=== PATIENT | female | born 1965 | race Caucasian/White ===

== ENCOUNTER 2016-09-30 10:15 | Day surgery (SDC) | payer OTHER ==
[~2016-09-30] VITALS: Ht 149.9 cm; Wt 79.0 kg
[~2016-09-30 10:15] MED LIST: Lactated Ringer's 1,000 ML IV ONE; OMEP40CA36 PO
[2016-09-30] MEDS ORDERED: Propofol 10,000 mCg/mL 20 mL Inj ONE (10:16)
[2016-09-30 10:38] VITALS: BP 131/74; PULSE 70; RESP 16; O2SAT 98
[2016-09-30] MEDS ORDERED: Lactated Ringer's 1,000 ML IV SCH (10:44)
[2016-09-30] MEDS ORDERED: Ondansetron 2 mg/mL 2 mL Inj IVPUSH PRN (10:45)
[2016-09-30] MEDS ORDERED: MetoCLOpramide 5 mg/mL 2 mL Inj IVPUSH PRN (10:45)
[2016-09-30 11:27] VITALS: BP 108/75; PULSE 76; RESP 12; O2SAT 99
[2016-09-30 11:38] VITALS: BP 108/75; PULSE 62; RESP 14; O2SAT 99
--- NOTE | 2016-09-30 14:09 | ENDO ---
[address] [address] ENDOSCOPY PROCEDURE PATIENT: SHAZIA OLIVIA : 1965 MR#: [id number] ADMIT: 09/30/2016 JOB ID: [id number] TYPE OF OPERATION: Esophagogastroduodenoscopy, biopsy. Colonoscopy, biopsy. PREOPERATIVE DIAGNOSIS(ES): Gastroesophageal reflux disease and diarrhea. POSTOPERATIVE DIAGNOSIS(ES): 1. Small hiatal hernia. 2. 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 3. Mild sigmoid diverticulosis. ANESTHESIA: Monitored anesthesia care. COMPLICATIONS: None. BLOOD LOSS: Minimal. DESCRIPTION OF PROCEDURE: After risks and benefits explained to the patient, informed consent was obtained. After anesthesia administered, upper endoscope was inserted in mouth intubating the esophagus, stomach, second portion of duodenum. Mucosa carefully examined. After procedure was done, the scope withdrawn, procedure terminated. Colonoscope was then inserted from the rectum to the terminal ileum. Mucosa carefully examined. Prep of the patient was excellent. After procedure was done, the scope withdrawn, procedure terminated. FINDINGS: Upon inspection of the esophagus, esophagus was normal without masses, ulcers, or lesions. Z-line located at 35 cm from incisors. Upon entering the stomach, there appeared to be a gastric sleeve that was previously done. Retroflexion showed small hiatal hernia. Duodenal bulb, first and second portion were normal. Biopsies taken of duodenum, antrum, body of stomach and distal esophagus. Upon inspection of the anus, no masses, hemorrhoids, ulcers, or fissures that were seen throughout the entire examination. There was mild sigmoid diverticulosis. Biopsies taken of the terminal ileum and random colon. Retroflexion was normal. IMPRESSION: 1. Status post gastric sleeve. 2. Small hiatal hernia. 3. Small sigmoid diverticulosis. RECOMMENDATIONS: Await pathology results. High-fiber diet. The patient will need a repeat colonoscopy in 10 years for average risk for colorectal cancer screening.
--- NOTE | 2016-09-30 16:39 | PCM.HPANE ---
Patient Data Surgeon Admitting Provider: Attending Provider:Jose A Rankin MD Primary Care Physician:Mariela Kearney MD Other Provider:[facility] Reason for Visit Diarrhea Gerd Ht/WT & BMI Body Mass Index Allergies Coded Allergies: No Known Allergies (Unverified , 09/30/16) Medications Reported Medications Omeprazole 40 Mg Capsule.dr40 Mg PO BID Ref 0 09/29/16 Stop/Bang Risk Assessment Category Category 1A: Patient has history of documented sleep apnea, and HAS NOT received any narcotic, sedative or anesthesia administration during this stay. Category 1B: Patient has history of documented sleep apnea, and HAS received any narcotic , sedative or anesthesia administration during this stay Category 2: Patient has SUSPECTED Obstructive Sleep Apnea, and HAS received any narcotic , sedative or anesthesia administration during this stay. Category 3: Patient has SUSPECTED Obstructive Sleep Apnea and HAS NOT received narcotic, sedative or anesthesia administration during this stay. Category 4: Outpatient in Procedural Areas with known sleep apnea or who screen positive for High Risk via the STOP/BANG questionnaire. Exam Exam General Appearance: Alert, Oriented X3, Cooperative HEENT/AIRWAY: MP 2, Neck Movement (FROM), Mouth Opening (3 FBMO) Lungs: Normal Air Movement Heart: Regular Rate/Rhythm Plan Impression Patient chart reviewed, patient interviewed and anesthestic plan with risks, benefits, and alternatives discussed, and informed consent obtained. NPO Status: > 8 hrs ASA Physical Status: ASA2 Mod Systemic Disease Anesthetic Plan: MAC Bene/Risks/Altern/Consents: Yes HP Complete Prior to Induction: Yes David Wilkins MD Sep 30, 2016 07:19
--- NOTE | 2016-09-30 16:40 | PCM.ANEP1 ---
Post Anesthesia Phase 1 PACU Phase 1 Assessment Vital Signs Vital Signs Date Time Temp Pulse Resp B/P Pulse Ox O2 Delivery O2 Flow Rate FiO2 09/30/16 11:38 62 14 108/75 99 Room Air 09/30/16 11:27 76 12 108/75 99 Room Air 09/30/16 10:38 36.9 70 16 131/74 98 Room Air Anesthetic Administered: MAC Level of Alertness: Awake, talking SERNA's with Equal Strength: Yes Pain: No Nausea or Vomiting: No Cardiovascular Function and Hy: No Oxygen Delivery: Room Air Lungs: Normal Air Movement Dermatome Level: Full Sensation Complications: No Follow up Care: No David Wilkins MD Sep 30, 2016 16:40
--- NOTE | 2016-10-02 18:13 | PATH ---
SURGICAL PATHOLOGY Attending Physician:Jose A Rankin MD CASE STATUS: Signed Out PATIENT NAME: SHAZIA OLIVIA PID: [id number] : 1965 DATE COLLECTED:09/30/2016 19:36 SPECIMEN: 1: Duodenum, Biopsy 2: Stomach, Antrum, Biopsy 3: Gastric, Biopsy 4: Esophagus, Biopsy 5: Ileum, Biopsy 6: Colon, Biopsy CLINICAL HISTORY: 1). DUODENUM BIOPSY 2). ANTRUM BIOPSY 3). GASTRIC BODY BIOPSY 4). DISTAL ESOOPHAGUS BIOPSY 5). TERMINAL ILEUM BIOPSY 6). RANDOM COLON BIOPSY FINAL DIAGNOSIS: 1. Duodenum, Biopsy: Duodenal mucosa with no diagnostic abnormality. Negative for active inflammation, features of sprue, dysplasia or malignancy. 2. Stomach, Antrum, Biopsy: Antral-type mucosa with mild chronic gastritis. Negative for H. pylori organisms by immunohistochemistry studies. Negative for intestinal metaplasia, dysplasia, and malignancy. 3. Gastric Body Biopsy: Body-type mucosa with no diagnostic abnormality. Negative for Helicobacter organisms by H&E stain. Negative for intestinal metaplasia, dysplasia, and malignancy. 4. Distal Esophagus, Biopsy: Squamocolumnar junctional mucosa with no diagnostic abnormality. Negative for intestinal metaplasia, dysplasia, and malignancy. Scant columnar epithelium identified for evaluation. 5. Terminal Ileum, Biopsy: Small bowel mucosa with no diagnostic abnormality. Negative for active inflammation, dysplasia, and malignancy. 6. Colon, Random Biopsy: Colonic mucosa with no diagnostic abnormality. Negative for active, chronic, and microscopic colitis. Negative for dysplasia and malignancy. ICD10: K29.7 GROSS DESCRIPTION: The specimen is received in six formalin filled containers labeled with the patient's name. 1). The specimen is sublabeled "duodenum" and consists of 2 portions of tissue which aggregate to 0.5 x 0.3 x 0.2 CM. The specimen is entirely submitted in cassette 1A. 2). The specimen is sublabeled "antrum" and consists of 2 portions of tissue which aggregate to 0.3 x 0.3 x 0.2 CM. The specimen is entirely submitted in cassette 2A. 3). The specimen is sublabeled "gastric body" and consists of 3 portions of tissue which aggregate to 0.4 x 0.3 x 0.2 CM. The specimen is entirely submitted in cassette 3A. 4). The specimen is sublabeled "distal esophagus" and consists of a 0.4 x 0.2 x 0.2 CM portion of tissue which is entirely submitted in cassette 4A. 5). The specimen is sublabeled "terminal ileum" and consists of 2 portions of tissue which aggregate to 0.3 x 0.2 x 0.2 CM. The specimen is entirely submitted in cassette 5A. 6). The specimen is sublabeled "random colon" and consists of multiple portions of tissue which aggregate to 0.4 x 0.4 x 0.3 CM. The specimen is entirely submitted in cassettes 6A. 09/30/2016 [facility] MICRO DESCRIPTION: IMMUNOHISTOCHEMISTRY: Block 2A: H. pylori: Negative. Block 3A: H. pylori: Negative. * This test was developed and its performance characteristics determined by [facility]. It has not been cleared or approved by the U.S. Food and Drug Administration. The FDA has determined that such clearance or approval is not necessary. This test is used for clinical purposes. It should not be regarded as investigational or for research. ICD-9 CODES: CPT CODES: 1: 00445 2: 37323, 71729 3: 96362, 58331 4: 54074 5: 46179 6: 35935 Electronically Signed Out Carla Jewell MD [facility] [address], [place] [address] Technical component performed at [facility], [address], [place], [address]
== END 2016-09-30 23:59 | disposition home or self-care (01) ==
LOC: END 10:15
PROVIDERS: ATTEND Internal Medicine Gastroenterology
DX: R19.7 Diarrhea, unspecified (principal); K29.50 Unspecified chronic gastritis without bleeding; K44.9 Diaphragmatic hernia without obstruction or gangrene; R10.32 Left lower quadrant pain; K21.9 Gastro-esophageal reflux disease without esophagitis; G47.33 Obstructive sleep apnea (adult) (pediatric); K57.30 Diverticulosis of large intestine without perforation or abscess without bleeding; Z98.84 Bariatric surgery status; Z90.710 Acquired absence of both cervix and uterus; Z87.891 Personal history of nicotine dependence
CPT/HCPCS: 43239; 45380; J7120